=== PATIENT | female | born 1935 | race Hispanic/Latino ===

== ENCOUNTER 2017-07-14 13:23 | Emergency (ER) | payer MEDICARE, BC ==
--- NOTE | 2017-07-14 13:41 | ED PDOC ---
Arrival/HPI - History of Present Illness Time/Duration: < week Symptom Onset: Sudden Symptom Course: Improving Activities at Onset: Rest <Nancy Hinojosa - Last Filed: 07/14/17 15:34> <Arthur Larry - Last Filed: 07/17/17 07:50> - General Chief Complaint: GI Problem Time Seen by Provider: 07/14/17 13:28 - History of Present Illness Narrative History of Present Illness (Text): 81 year old female with history of uterine prolapse, hemorrhoids rectocele, cystocele, and diabetes presents with 4 days of melena. Patient denies any new weakness, fever, chills, chest pain, SOB, abdominal pain, n/v/d, constipation, urinary symptoms, or back pain. Last bowel movement was normal but patient wanted to come in to be evaluated. (Nancy Hinojosa) Past Medical History - Provider Review Nursing Documentation Reviewed: Yes <Nancy Hinojosa - Last Filed: 07/14/17 15:34> - Provider Review Nursing Documentation Reviewed: Yes - Reproductive Menopause: Yes - Cardiac Hx Hypertension: Yes Hx Pacemaker: No - Neurological Hx Paralysis: No - Endocrine/Metabolic Hx Diabetes Mellitus Type 2: Yes - Hematological/Oncological Hx Blood Transfusions: No Hx Blood Transfusion Reaction: No - Musculoskeletal/Rheumatological Hx Musculoskeletal Disorders: No - Psychiatric Hx Emotional Abuse: No Hx Physical Abuse: No Hx Substance Use: No - Anesthesia Hx Anesthesia Reactions: No - Suicidal Assessment Feels Threatened In Home Enviroment: No <Jeff Larrydeann - Last Filed: 07/17/17 07:50> Family/Social History - Physician Review Nursing Documentation Reviewed: Yes Family/Social History: No Known Family HX <Nancy Hinojosa - Last Filed: 07/14/17 15:34> - Physician Review Nursing Documentation Reviewed: Yes Family/Social History: No Known Family HX Smoking Status: Never Smoked Hx Alcohol Use: No Hx Substance Use: No <Arthur Larry - Last Filed: 07/17/17 07:50> Allergies/Home Meds <Nancy Hinojosa - Last Filed: 07/14/17 15:34> <Arthur Larry - Last Filed: 07/17/17 07:50> Allergies/Adverse Reactions: Allergies No Known Allergies Allergy (Verified 07/14/17 13:36) Home Medications: Home Meds Medication Instructions Recorded Confirmed Atorvastatin Calcium [Lipitor] 10 mg PO QAM 03/29/14 07/14/17 Enalapril Maleate [Enalapril] 2.5 mg PO BID 03/29/14 07/14/17 Glimepiride [amaRYL] 4 mg PO BID 03/29/14 07/14/17 Aspirin [Ecotrin] 81 mg PO DAILY 04/18/16 07/14/17 Flaxseed Oil [Flax Oil] 1,000 mg PO DAILY 04/18/16 07/14/17 Magnesium Oxide [Magnesium] 400 mg PO DAILY 04/18/16 07/14/17 Mv,Ca,Min/Iron/FA/Guarana/Caff 1 cap PO DAILY 04/18/16 07/14/17 [One-A-Day Women's Tablet] [place]-3 Fatty Acids/Fish Oil [Fish 1 sgl PO DAILY 04/18/16 07/14/17 Oil Concentrate 1000 mg-3 Iu] Pantoprazole [Protonix] 40 mg PO QAM 04/18/16 07/14/17 Glucosamine/Chondro Solomon A [Cosamin 1 tab PO BID 07/14/17 07/14/17 Ds Tablet] SITagliptin [Januvia] 50 mg PO DAILY 07/14/17 07/14/17 Review of Systems - Physician Review All systems were reviewed & negative as marked: Yes (As per HPI) - Review of Systems Respiratory: Normal. absent: SOB Cardiovascular: Normal. absent: Chest Pain, Palpitations Gastrointestinal: Normal. absent: Abdominal Pain <aNncy Hinojosa - Last Filed: 07/14/17 15:34> Physical Exam Vital Signs Reviewed: Yes Temperature: Afebrile Blood Pressure: Normal Pulse: Regular Respiratory Rate: Normal Appearance: Positive for: Well-Appearing, Comfortable Pain Distress: None Mental Status: Positive for: Alert and Oriented X 3 <Nancy Hinojosa - Last Filed: 07/14/17 15:34> <Arthur Larry - Last Filed: 07/17/17 07:50> - Physical Exam Narrative Physical Exam (Text): 07/14/17 13:40 Head: Atraumatic. Normocephalic. Eyes: PERRL. EOMI. Conjunctivae are not pale. ENT: Mucous membranes are moist and intact. Oropharynx is clear and symmetric. Neck: Supple. Full ROM. No JVD. No lymphadenopathy. Cardiovascular: Regular rate. Regular rhythm. Pulmonary/Chest: No evidence of respiratory distress. Abdominal: Soft and non-distended. There is no tenderness. No rebound, guarding, or rigidity. No organomegaly. Good bowel sounds. Back: No CVA tenderness. Rectal: reviewed with Dr. Hinojosa, who performed exam, scantly heme positive, no melena or gross blood noted, no thrombosed hemorrhoid noted Extremities: No edema. No cyanosis. No clubbing. Full range of motion in all extremities. No calf tenderness. Skin: Skin is warm and dry. No petechiae. No purpura. Neurological: Alert, awake. Motor and sensory exam intact Psychiatric: good interaction 07/17/17 07:48 (Arthur Larry) Vital Signs Temp Pulse Resp BP Pulse Ox 07/14/17 15:25 78 18 127/61 98 07/14/17 13:48 97.5 F L 82 18 131/65 99 Medical Decision Making - Lab Interpretations I have reviewed the lab results: Yes <Nancy Hinojosa - Last Filed: 07/14/17 15:34> <Arthur Larry - Last Filed: 07/17/17 07:50> ED Course and Treatment: Progress Notes:With serial exams in ED, patient with no heavy bleeding, no pain , is cv stable. 07/14/17 15:28 Patient Seen With Resident: In agreement with resident note which contains more details about the patient. Patient was seen and evaluated with resident. Came up with plan and treatment together. Patient during my examination is asymptomatic, no heavy bleeding noted , no hypotension or tachycardia, the patient denies being on any strong blood thinners, no abdominal pain, and her hemoglobin is 12.7, which is the patient's baseline. The patient has been evaluated by her claim clerk at bedside in emergency department, the patient will be discharged and advised to follow up with her GI. 07/17/17 07:49 (Arthur Larry) - Lab Interpretations Lab Results: 07/14/17 14:00 07/14/17 14:00 Lab Results 07/14/17 14:00: Sodium 135, Potassium 4.3, Chloride 99, Carbon Dioxide 25, Anion Gap 16, BUN 32 H, Creatinine 1.0, Est GFR ( Amer) > 60, Est GFR ( Non-Af Amer) 53, Random Glucose 217 H, Calcium 10.0, Total Bilirubin 0.7, AST 28 , ALT 32, Alkaline Phosphatase 78, Total Protein 7.7, Albumin 4.6, Globulin 3.2 , Albumin/Globulin Ratio 1.4 07/14/17 14:00: PT 10.8, INR 0.99, APTT 37.8 H 07/14/17 14:00: WBC 7.0, RBC 3.99, Hgb 12.7, Hct 37.7, MCV 94.5, MCH 31.8, MCHC 33.7, RDW 13.2, Plt Count 163, MPV 11.0, Gran % 70.6 H, Lymph % (Auto) 21.4 L, [place] % (Auto) 4.7, Eos % (Auto) 2.9, Baso % (Auto) 0.4, Gran # 4.95, Lymph # 1.5 , [place] # 0.3, Eos # 0.2, Baso # 0.03 <Nancy Hinojosa - Last Filed: 07/14/17 15:34> - Scribe Statement The provider has reviewed the documentation as recorded by the Scribe <Arthur Larry - Last Filed: 07/17/17 07:50> - Scribe Statement Paulette Marin Provider Scribe Attestation: All medical record entries made by the Scribe were at my direction and personally dictated by me. I have reviewed the chart and agree that the record accurately reflects my personal performance of the history, physical exam, medical decision making, and the department course for this patient. I have also personally directed, reviewed, and agree with the discharge instructions and disposition. (Arthur Larry) Disposition/Present on Arrival - Present on Arrival Any Indicators Present on Arrival: No - Disposition Have Diagnosis and Disposition been Completed?: Yes Disposition Time: 15:39 Patient Plan: Discharge <Nancy Hinojosa - Last Filed: 07/14/17 15:34> - Present on Arrival History of DVT/PE: No History of Uncontrolled Diabetes: No Urinary Catheter: No History of Decub. Ulcer: No History Surgical Site Infection Following: None <Arthur Larry - Last Filed: 07/17/17 07:50> - Disposition Diagnosis: GI bleed Disposition: HOME/ ROUTINE Condition: STABLE Discharge Instructions (ExitCare): Gastrointestinal Bleeding (ED) Additional Instructions: Please follow up with your primary medical physician and GI Physician (Dr. Haskins) Referrals: Alex Lehman MD [Primary Care Provider] - Follow up with primary Sulma Haskins MD [Medical Doctor] - Follow up with primary Forms: [employer] (Bulgarian)
[2017-07-14 13:42] VITALS: BMI 23.3
[2017-07-14 13:49] VITALS: RESP 18; TEMP 97.5
[2017-07-14 14:53] LABS: BASO # 0.03 K/mm3 (0.0-2.0); BASO % 0.4 % (0.0-3.0); EOS # 0.2 (0.0-0.7); EOS % 2.9 % (1.5-5.0); GRAN # 4.95 (1.4-6.5); GRAN % 70.6 % (50.0-68.0); HEMATOCRIT 37.7 % (36.0-48.0); LYMPH # 1.5 (1.2-3.4); LYMPH % 21.4 % (22.0-35.0); MEAN CELL VOLUME 94.5 fl (80.0-105.0); MEAN CORPUSCULAR HEMOGLOBIN 31.8 pg (25.0-35.0); MEAN CORPUSCULAR HGB CONC 33.7 g/dl (31.0-37.0); MONO # 0.3 (0.1-0.6); MONO % 4.7 % (1.0-6.0); RED CELL DISTRIBUTION WIDTH 13.2 % (11.5-14.5)
[2017-07-14 15:05] LABS: ALB/GLOB RATIO 1.4 (1.1-1.8); ALKALINE PHOSPHATASE 78 U/L (38-126); ALT/SGPT 32 U/L (7-56); AST/SGOT 28 U/L (14-36); BILIRUBIN,TOTAL 0.7 mg/dL (0.2-1.3); BLOOD UREA NITROGEN 32 mg/dL (7-21); CARBON DIOXIDE 25 mmol/L (21-33); CHLORIDE 99 mmol/L (98-107); GFR AFRICAN-AMERICAN > 60; GLUCOSE,RANDOM 217 mg/dL (70-110); POTASSIUM 4.3 mmol/L (3.6-5.0); SODIUM 135 mmol/L (132-148); TOTAL PROTEIN 7.7 g/dL (5.8-8.3)
[2017-07-14 15:17] LABS: INR 0.99 (0.93-1.08); PARTIAL THROMBOPLASTIN TIME 37.8 Seconds (25.1-36.5)
[2017-07-14 15:30] VITALS: BP 127/61; PULSE 78; O2SAT 98
== END 2017-07-14 15:45 | disposition home or self-care (01) ==
LOC: ED 13:23
DX: K92.2 Gastrointestinal hemorrhage, unspecified (principal); I10 Essential (primary) hypertension; E11.9 Type 2 diabetes mellitus without complications

== ENCOUNTER 2017-11-22 08:35 | Emergency (ER) | payer MEDICARE, BC ==
[2017-11-22 08:58] VITALS: BMI 24.2
--- NOTE | 2017-11-22 09:59 | ED PDOC ---
Arrival/HPI - General Chief Complaint: Back Pain Time Seen by Provider: 11/22/17 09:27 Historian: Patient - History of Present Illness Narrative History of Present Illness (Text): 11/22/17 09:56 82yo female with PMhx of hypertension present to ED with complaint of right sided back pain. States pain started suddenly yesterday. Pain is described as intermittent and crampy. States she took Aleve and Tylenol. Applied topical analgesic without relieve. No exacerbating factors. Denies fever, chills, urinary/fecal incontinence, focal weakness, saddle anesthesia, nausea, vomiting , urinary symptoms, any other complaint. Past Medical History - Provider Review Nursing Documentation Reviewed: Yes - Reproductive Menopause: Yes - Cardiac Hx Cardiac Disorders: Yes Hx Hypertension: Yes Hx Pacemaker: No - Neurological Hx Paralysis: No - Endocrine/Metabolic Hx Endocrine Disorders: Yes Hx Diabetes Mellitus Type 2: Yes - Hematological/Oncological Hx Blood Transfusions: No Hx Blood Transfusion Reaction: No - Musculoskeletal/Rheumatological Hx Musculoskeletal Disorders: No - Genitourinary/Gynecological Hx Genitourinary Disorders: Yes Other/Comment: frequent urination - Psychiatric Hx Emotional Abuse: No Hx Physical Abuse: No Hx Substance Use: No - Surgical History Hx Cataract Extraction: Yes - Anesthesia Hx Anesthesia: Yes Hx Anesthesia Reactions: No Hx Malignant Hyperthermia: No - Suicidal Assessment Feels Threatened In Home Enviroment: No Family/Social History - Physician Review Nursing Documentation Reviewed: Yes Family/Social History: Unknown Family HX Smoking Status: Never Smoked Hx Alcohol Use: No Hx Substance Use: No Allergies/Home Meds Allergies/Adverse Reactions: Allergies No Known Allergies Allergy (Verified 11/22/17 09:21) Home Medications: Home Meds Medication Instructions Recorded Confirmed Atorvastatin Calcium [Lipitor] 10 mg PO QAM 03/29/14 11/22/17 Enalapril Maleate [Enalapril] 2.5 mg PO BID 03/29/14 11/22/17 Glimepiride [amaRYL] 4 mg PO BID 03/29/14 11/22/17 Aspirin [Ecotrin] 81 mg PO DAILY 04/18/16 11/22/17 Flaxseed Oil [Flax Oil] 1,000 mg PO DAILY 04/18/16 11/22/17 Magnesium Oxide [Magnesium] 400 mg PO DAILY 04/18/16 11/22/17 Mv,Ca,Min/Iron/FA/Guarana/Caff 1 cap PO DAILY 04/18/16 11/22/17 [One-A-Day Women's Tablet] [place]-3 Fatty Acids/Fish Oil [Fish 1 sgl PO DAILY 04/18/16 11/22/17 Oil Concentrate 1000 mg-3 Iu] Pantoprazole [Protonix] 40 mg PO QAM 04/18/16 11/22/17 Glucosamine/Chondro Solomon A [Cosamin 1 tab PO BID 07/14/17 11/22/17 Ds Tablet] SITagliptin [Januvia] 50 mg PO DAILY 07/14/17 11/22/17 Review of Systems - Physician Review All systems were reviewed & negative as marked: Yes - Review of Systems Constitutional: Normal Eyes: Normal ENT: Normal Respiratory: Normal Cardiovascular: Normal Gastrointestinal: Normal Genitourinary Female: Normal Musculoskeletal: Back Pain Skin: Normal Neurological: Normal Endocrine: Normal Hemo/Lymphatic: Normal Psychiatric: Normal Physical Exam Vital Signs Reviewed: Yes Vital Signs Temp Pulse Resp BP Pulse Ox 11/22/17 11:06 97.8 F 72 16 123/58 L 99 11/22/17 08:57 97.7 F 68 18 140/79 98 11/22/17 08:35 97.7 F 77 18 148/79 99 Temperature: Afebrile Blood Pressure: Normal Pulse: Regular Respiratory Rate: Normal Appearance: Positive for: Well-Appearing, Non-Toxic, Comfortable Pain Distress: None Mental Status: Positive for: Alert and Oriented X 3 - Systems Exam Head: Present: Atraumatic, Normocephalic Pupils: Present: PERRL Extroacular Muscles: Present: EOMI Conjunctiva: Present: Normal Mouth: Present: Moist Mucous Membranes Neck: Present: Normal Range of Motion Respiratory/Chest: Present: Clear to Auscultation, Good Air Exchange. No: Respiratory Distress, Accessory Muscle Use Cardiovascular: Present: Regular Rate and Rhythm, Normal S1, S2. No: Murmurs Abdomen: No: Tenderness, Distention, Peritoneal Signs Back: Present: Normal Inspection, Paraspinal Tenderness (Right parathoracic tenderness). No: Midline Tenderness, Pain with Leg Raise Upper Extremity: Present: Normal Inspection. No: Cyanosis, Edema Lower Extremity: Present: Normal Inspection. No: Edema Neurological: Present: GCS=15, CN II-XII Intact, Speech Normal Skin: Present: Warm, Dry, Normal Color. No: Rashes Psychiatric: Present: Alert, Oriented x 3, Normal Insight, Normal Concentration Medical Decision Making ED Course and Treatment: 11/22/17 12:06 Pt present to ED with stated history. She have no focal neurological deficit. On reevaluation she notes that her pain improved, but still have some pain to her back. Thoracic spine CT IMPRESSION: No acute fractures. Multilevel degenerative spondylosis most notably affecting T8-T9 level where there is a small calcification (possibly calcified disc) that results in mild compressive effects on the ventral surface of the thecal sac and possibly spinal cord LS CT DISCS/SPINAL CANAL/NEURAL FORAMINA: Multilevel degenerative spondylosis. L1-2: Disc space narrowing, small amount of vacuum disc phenomena and cortical endplate irregularity -subchondral cystic changes. Small broad-based disc ridge complex results in mild flattening of the ventral surface of the thecal sac however the overall central canal is quite capacious. Facets are mildly hypertrophic. Right exit foramen appears mild on marginal to slightly narrowed. Left exit foramen is adequate. L2-3: Disc space narrowing,, cortical endplate irregularity -eburnation with chronic Schmorl's nodes changes and vacuum disc phenomena. Small broad-based disc ridge complex results in some flattening of the ventral surface of the thecal sac with extension into the proximal inferior margins of both exit foramina. Facets are slightly overgrown. The overall central canal appears adequate despite flattening of the thecal sac. Exit foramina are marginal to narrowed bilaterally, right more so than left. L3-4: Disc space narrowing with cortical endplate irregularity -eburnation and moderate amount of vacuum disc phenomena. The the small broad-based disc ridge complex I asymmetrically larger on the left than right with extension into the proximal inferior margins of both exit foramina. Facets are mildly hypertrophic. Changes result in mild flattening of the ventral surface of the thecal sac however the overall central canal is adequate. Exit foramina are narrowed bilaterally more so on the right. L4-5: At the L4-L5 level, there is disc space narrowing with small amount of vacuum disc phenomena. There is also slight uncovering the posterior superior margin of the disc due to the slight anterior subluxation. . Slight flattening of the ventral surface of the thecal sac however the overall central canal is quite capacious. Facets are hypertrophic right greater than left. Exit foramina are mildly narrowed more so on the right side. L5-S1: Disc space narrowing with endplate irregularity/eburnation. There is a tiny central and bilateral osteophytic ridge that does not cause any significant canal compromise. The canal is quite capacious at this level. Facets are moderately hypertrophic with superiorly significant bilateral foraminal stenosis greater on the left than the right. . PARASPINAL SOFT TISSUES: Unremarkable. OTHER FINDINGS: None. IMPRESSION: No acute fractures. Multilevel degenerative spondylosis resulting in fairly significant bilateral foraminal stenosis at L5-S1 level as above. Result was DW both pt, her spouse and the son. She was offered admission for pain control but she declined admission. States she will rather go home with oral analgesic and f/u with ortho. She was advised t return to ED for any new or worsening symptoms. - RAD Interpretation Radiology Orders: 11/22/17 09:27 LUMBAR SPINE W/O CONTRAST [CT] Stat THORACIC SPINE W/O CONT [CT] Stat - Medication Orders Current Medication Orders: Discontinued Medications Diazepam (Valium) 5 mg PO ONCE ONE PRN Reason: Protocol Stop: 11/22/17 09:29 Last Admin: 11/22/17 09:40 Dose: 5 mg Ketorolac Tromethamine (Toradol) 30 mg IM STAT STA Stop: 11/22/17 09:29 Last Admin: 11/22/17 09:40 Dose: 30 mg MAR Pain Assessment Document 11/22/17 09:40 GMD (Rec: 11/22/17 09:40 [id number] Pain Reassessment Is this a pain reassessment? No Presence of Pain Presence of Pain Yes IM Administration Charges Document 11/22/17 09:40 GMD (Rec: 11/22/17 09:40 [id number] Injection Site MAR Injection Site Right Deltoid Charges for Administration # of IM Administrations 1 Disposition/Present on Arrival - Present on Arrival Any Indicators Present on Arrival: No History of DVT/PE: No History of Uncontrolled Diabetes: No Urinary Catheter: No History of Decub. Ulcer: No History Surgical Site Infection Following: None - Disposition Have Diagnosis and Disposition been Completed?: Yes Diagnosis: Back pain Disposition: HOME/ ROUTINE Disposition Time: 11:55 Patient Plan: Discharge Condition: STABLE Discharge Instructions (ExitCare): Upper Back Pain (DC) Additional Instructions: Follow up with your doctor/Orthopedist Return to ED for any new or worsening symptoms Prescriptions: Naproxen [Naprosyn] 500 mg PO BID #20 tablet oxyCODONE/Acetaminophen [Percocet 5/325 mg Tab] 1 ea PO Q6 #9 tab Referrals: Richard Tamayo DO [Staff Provider] - Follow up with primary Forms: [employer] (Kinyarwanda)
--- NOTE | 2017-11-22 11:09 | CT ---
PROCEDURE: CT scan lumbar spine dated 11/22/2017 HISTORY: Back pain COMPARISON: Correlation made with concurrent CT scan of the thoracic spine TECHNIQUE: Axial computed tomography images were obtained of the lumbar spine without the use of intravenous contrast. Coronal and sagittal reformatted images were created and reviewed. Radiation dose: Total exam DLP = 472.69 mGy-cm. This CT exam was performed using one or more of the following dose reduction techniques: Automated exposure control, adjustment of the mA and/or kV according to patient size, and/or use of iterative reconstruction technique. FINDINGS: VERTEBRAE: Current study reveals no evidence of acute compression fracture nor retropulsed fragments. Vertebral bodies exhibit relatively normal stature. There is straightening of the normal lumbar lordosis with very slight rotatory anterior more subluxation of L4 over L5, more so on the left. The remaining vertebral bodies otherwise exhibit normal alignment. Facets normally aligned. DISCS/SPINAL CANAL/NEURAL FORAMINA: Multilevel degenerative spondylosis. L1-2: Disc space narrowing, small amount of vacuum disc phenomena and cortical endplate irregularity -subchondral cystic changes. Small broad-based disc ridge complex results in mild flattening of the ventral surface of the thecal sac however the overall central canal is quite capacious. Facets are mildly hypertrophic. Right exit foramen appears mild on marginal to slightly narrowed. Left exit foramen is adequate. L2-3: Disc space narrowing,, cortical endplate irregularity -eburnation with chronic Schmorl's nodes changes and vacuum disc phenomena. Small broad-based disc ridge complex results in some flattening of the ventral surface of the thecal sac with extension into the proximal inferior margins of both exit foramina. Facets are slightly overgrown. The overall central canal appears adequate despite flattening of the thecal sac. Exit foramina are marginal to narrowed bilaterally, right more so than left. L3-4: Disc space narrowing with cortical endplate irregularity -eburnation and moderate amount of vacuum disc phenomena. The the small broad-based disc ridge complex I asymmetrically larger on the left than right with extension into the proximal inferior margins of both exit foramina. Facets are mildly hypertrophic. Changes result in mild flattening of the ventral surface of the thecal sac however the overall central canal is adequate. Exit foramina are narrowed bilaterally more so on the right. L4-5: At the L4-L5 level, there is disc space narrowing with small amount of vacuum disc phenomena. There is also slight uncovering the posterior superior margin of the disc due to the slight anterior subluxation. . Slight flattening of the ventral surface of the thecal sac however the overall central canal is quite capacious. Facets are hypertrophic right greater than left. Exit foramina are mildly narrowed more so on the right side. L5-S1: Disc space narrowing with endplate irregularity/eburnation. There is a tiny central and bilateral osteophytic ridge that does not cause any significant canal compromise. The canal is quite capacious at this level. Facets are moderately hypertrophic with superiorly significant bilateral foraminal stenosis greater on the left than the right. . PARASPINAL SOFT TISSUES: Unremarkable. OTHER FINDINGS: None. IMPRESSION: No acute fractures. Multilevel degenerative spondylosis resulting in fairly significant bilateral foraminal stenosis at L5-S1 level as above.
--- NOTE | 2017-11-22 11:28 | CT ---
PROCEDURE: Thoracic spine dated 11/22/2017 HISTORY: Back pain COMPARISON: None. TECHNIQUE: Axial computed tomography images were obtained of the thoracic spine without intravenous contrast. Coronal and sagittal reformatted images were created and reviewed. Radiation dose: Total exam DLP = 363.47 abdomen mGy-cm. This CT exam was performed using one or more of the following dose reduction techniques: Automated exposure control, adjustment of the mA and/or kV according to patient size, and/or use of iterative reconstruction technique. FINDINGS: VERTEBRAE: No acute compression fractures no retropulsed fragments. Vertebral bodies exhibit relatively normal stature. There is a mild dextroscoliosis centered in the mid to lower thoracic region. . Vertebral bodies otherwise exhibit normal alignment. Facets normally aligned. DISCS/SPINAL CANAL/NEURAL FORAMINA: Multilevel degenerative spondylosis. Changes include varying degrees of disc space narrowing, endplate eburnation with subchondral cystic changes. In addition, back disc phenomena seen at several levels as well. No at the T8-T9 level, there is in elliptical shaped calcification (possibly a calcified disc herniation) that extends both superiorly and inferiorly over short distance above and below the disc space level and results in compression of the ventral surface of the thecal sac with questionable Um compression of the ventral surface of the cord. Central canal does appear adequate at this level. Exit foramina adequate At the T10-T11 level, there is also tiny central and bilateral ridge disc complex that indents the ventral surface of the thecal sac however the overall central canal appears adequate. Similar tiny focus centrally and to the left noted at the T12-L1 level. Canal appears adequate at this level as well. that PARASPINAL SOFT TISSUES: Unremarkable. OTHER FINDINGS: Note made of a small hiatal hernia with slight wall thickening of the distal esophagus likely due to protrusion of gastric mucosa. Possibility of esophagitis not excluded. 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 IMPRESSION: No acute fractures. Multilevel degenerative spondylosis most notably affecting T8-T9 level where there is a small calcification (possibly calcified disc) that results in mild compressive effects on the ventral surface of the thecal sac and possibly spinal cord
[2017-11-22 12:07] VITALS: BP 123/58; PULSE 72; RESP 16; TEMP 97.8; O2SAT 99
== END 2017-11-22 12:11 | disposition home or self-care (01) ==
LOC: ED 08:35
DX: M54.9 Dorsalgia, unspecified (principal); E11.9 Type 2 diabetes mellitus without complications; I10 Essential (primary) hypertension
CPT/HCPCS: 72128; 72131; 96372; 99283; J1885

== ENCOUNTER 2018-09-14 07:47 | Outpatient (CLI) | payer MEDICARE, BC | END 2018-09-14 07:48 | disposition home or self-care (01) | LOC: LAB 07:47 ==

== ENCOUNTER 2018-12-12 07:46 | Outpatient (CLI) | payer MEDICARE, BC | END 2018-12-12 07:47 | disposition home or self-care (01) | LOC: LAB 07:46 ==